=== PATIENT | male | born 1975 | race Two or more races ===

== ENCOUNTER 2019-01-04 01:55 | Emergency (ER) | payer SELFPAY ==
[2019-01-04] MEDS ORDERED: ACETAMINOPHEN 325 MG TABLET PO ONE (02:09)
[2019-01-04] MEDS ORDERED: IBUPROFEN 800 MG TABLET PO ONE (04:04)
--- NOTE | 2019-01-04 04:07 | ER Document Report ---
ED Fever - General Chief Complaint: Fever Stated Complaint: FEVER,HEADACHE,BODY PAIN Time Seen by Provider: 01/04/19 03:59 Notes: Patient is a 43-year-old male that comes emergency department for chief complaint of fever since yesterday. He states he started getting chills, body aches, he states he hurts all over. He has had intermittent headaches as well. He denies shortness of breath, cough, sore throat, abdominal pain. He states he did have a loose stool. He has some generalized lower back pain. He denies any obvious sick contacts, recent travel, denies ever using IV drugs, only past medical history reported is umbilical hernia repair. He takes no daily medications. TRAVEL OUTSIDE OF THE [place] IN LAST 30 DAYS: No Past Medical History - General Information source: Patient - Social History Smoking Status: Never Smoker Drug Abuse: None Lives with: Family Family History: Reviewed & Not Pertinent Patient has suicidal ideation: No Patient has homicidal ideation: No - Medical History Medical History: Negative Renal/ Medical History: Denies: Hx Peritoneal Dialysis - Immunizations Immunizations up to date: Yes Hx Diphtheria, Pertussis, Tetanus Vaccination: Yes Review of Systems - Review of Systems Constitutional: See HPI EENT: No symptoms reported Cardiovascular: No symptoms reported Respiratory: No symptoms reported Gastrointestinal: No symptoms reported Genitourinary: No symptoms reported Male Genitourinary: No symptoms reported Musculoskeletal: See HPI Skin: No symptoms reported Hematologic/Lymphatic: No symptoms reported Neurological/Psychological: See HPI Physical Exam - Vital signs Vitals: Temp Pulse Resp BP Pulse Ox 102.9 F H 125 H 16 143/89 H 94 01/04/19 02:03 01/04/19 02:03 01/04/19 02:03 01/04/19 02:03 01/04/19 02:03 - Notes Notes: GENERAL: Alert, interacts well. No acute distress. HEAD: Normocephalic, atraumatic. EYES: Pupils equal, round, and reactive to light. Extraocular movements intact. ENT: Oral mucosa moist, tongue midline. Oropharynx unremarkable. Airway patent. Nares patent, no nasal septal hematoma NECK: Full range of motion. Supple. Trachea midline. Negative Brudzinski sign, no nuchal rigidity LUNGS: Clear to auscultation bilaterally, no wheezes, rales, or rhonchi. No respiratory distress. HEART: Borderline tachycardic. Rhythm. No murmur ABDOMEN: Soft, non-tender. Non-distended. Bowel sounds present in all 4 quadrants. EXTREMITIES: Moves all 4 extremities spontaneously. No edema, normal radial and dorsalis pedis pulses bilaterally. No cyanosis. BACK: no cervical, thoracic, lumbar midline tenderness. No saddle anesthesia, normal distal neurovascular exam. Moves all extremities in full range of motion. NEUROLOGICAL: Alert and oriented x3. Normal speech. Cranial nerves II through XII grossly intact. PSYCH: Normal affect, normal mood. SKIN: Slightly flushed. Course - Re-evaluation Re-evalutation: Patient with no rash, no nuchal rigidity, no reported neck pain, no sore throat, normal oropharyngeal exam, clear lungs, no cough, no reported symptoms other than fever, generalized body aches, and headache. Headache is mild and patient is not complaining of a headache when I reevaluated him except for a minimal one. CBC shows mild leukocytosis with elevation of neutrophils. Nonspecific given patient's presentation. Chest x-ray does not show pneumonia. Chemistry non specific with very borderline bilirubin. Soft benign abdomen on exam without complaints of abdominal pain. [place] negative. I discussed with patient. I did recommend a lumbar puncture because of his headache, high fever, and really no other symptoms. Patient declined. I could not change his mind even whatsoever. However because patient is still well- appearing I suspect that if this is meningitis this is most likely aseptic meningitis. We do have blood cultures pending. 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 I discussed this with patient. Patient actually does want serum testing for this, this was placed. He will be placed on doxycycline. He was instructed to return if he worsens in any way including severe headache, confusion, abdominal pain, shortness of breath, throat pain, or any other concerning or worsening symptoms. Patient and friend at bedside state understanding and agreement. Vital signs unremarkable and patient is very well-appearing at time of discharge (he is talkative, ambulates easily, is very normal in appearance). - Vital Signs Vital signs: Temp Pulse Resp BP Pulse Ox 99.0 F 125 H 19 117/76 95 01/04/19 07:00 01/04/19 02:03 01/04/19 07:01 01/04/19 07:00 01/04/19 07:01 - Laboratory Result Diagrams: 01/04/19 04:28 01/04/19 04:28 Laboratory results interpreted by me: 01/04/19 01/04/19 01/04/19 04:28 04:28 04:28 WBC 11.3 H RDW 14.6 H Plt Count 141 L Lymph % (Auto) 9.8 L Absolute Neuts (auto) 9.6 H Seg Neutrophils % 85.0 H VBG pH 7.46 H VBG pCO2 31.1 L Sodium 130.8 L BUN 6 L Calcium 10.5 H Total Bilirubin 1.6 H Direct Bilirubin 0.6 H AST 85 H Discharge - Discharge Clinical Impression: Body aches Fever Qualifiers: Fever type: unspecified Qualified Code(s): R50.9 - Fever, unspecified Condition: Stable Disposition: HOME, SELF-CARE Additional Instructions: The exact cause of your fever is uncertain, however I am concerned that you have a tickborne illness called [place] spotted fever. As result we have started you on doxycycline. Take Tylenol or ibuprofen for your fever, rest, symptoms should begin to resolve. We do have pending tests here including blood cultures and tickborne illness testing, you will be contacted for any concerning findings. Return if you worsen including severe headache, severe abdominal pain, difficulty breathing, vomiting, confusion, or something is not right. Prescriptions: Doxycycline Hyclate 100 mg PO BID #20 capsule Forms: Return to Work, Treatment of Relative/Child
[2019-01-04 04:54] LABS: ABSOLUTE LYMPHOCYTES (AUTO) 1.1 10^3/uL (0.5-4.7); ABSOLUTE MONOCYTES (AUTO) 0.6 10^3/uL (0.1-1.4); ABSOLUTE NEUT (AUTO) 9.6 10^3/uL (1.7-8.2); BASOPHILS % (AUTO) 0.1 % (0-2); EOSINOPHILS % (AUTO) 0.1 % (0-6); HEMATOCRIT 44.4 % (37.9-51.0); LYMPHOCYTES % (AUTO) 9.8 % (13-45); MEAN CORPUSCULAR HEMOGLOBIN 31.8 pg (27.0-33.4); MEAN CORPUSCULAR HGB CONC 33.9 g/dL (32.0-36.0); MEAN CORPUSCULAR VOLUME 94 fl (80-97); PLATELET COUNT 141 10^3/uL (150-450); RED BLOOD COUNT 4.72 10^6/uL (4.35-5.55); RED CELL DISTRIBUTION WIDTH 14.6 % (11.5-14.0); TOTAL CELLS COUNTED % (AUTO) 100 %; VENOUS BLOOD BASE EXCESS -1.1 mmol/L; VENOUS BLOOD HCO3 21.6 mmol/L (20-32); VENOUS BLOOD PCO2 31.1 mmHg (35-63); VENOUS BLOOD PH 7.46 (7.30-7.42); WHITE BLOOD COUNT 11.3 10^3/uL (4.0-10.5)
[2019-01-04 05:08] LABS: ALBUMIN 3.8 g/dL (3.5-5.0); ALKALINE PHOSPHATASE 119 U/L (38-126); ANION GAP 9 (5-19); ASPARTATE AMINO TRANSFERASE 85 U/L (17-59); BILIRUBIN,DIRECT 0.6 mg/dL (0.0-0.4); BILIRUBIN,TOTAL 1.6 mg/dL (0.2-1.3); BLOOD UREA NITROGEN 6 mg/dL (7-20); CALCIUM 10.5 mg/dL (8.4-10.2); CARBON DIOXIDE 23 mmol/L (22-30); CHLORIDE 99 mmol/L (98-107); GLUCOSE 107 mg/dL (75-110); POTASSIUM 3.7 mmol/L (3.6-5.0); TOTAL PROTEIN 7.6 g/dL (6.3-8.2)
[2019-01-04] MEDS ORDERED: NORMAL SALINE 1000 ML 1,000 ML IV ONE (05:22)
--- NOTE | 2019-01-04 05:51 | RADIOLOGY REPORT (SQ) ---
EXAM DESCRIPTION: XR CHEST 2 VIEWS COMPLETED DATE/TME: 01/04/2019 04:05 CLINICAL HISTORY: fevers COMPARISON: None. FINDINGS: Frontal and lateral views of the chest. The cardiomediastinal silhouette has normal size and contour. No consolidation, pneumothorax, or pleural effusion. No displaced rib fractures identified. Leads overlie the chest. Upper abdominal soft tissues are unremarkable. IMPRESSION: 1. No acute pulmonary process identified.
[2019-01-04] MEDS ORDERED: DOXYCYCLINE HYCLATE 100 MG TABLET PO ONE (07:02)
[2019-01-04 07:16] VITALS: BP 117/76
[2019-01-07 16:44] LABS: LYME DISEASE IGM AB <0.80 index (0.00-0.79)
[2019-01-08 07:18] LABS: ROCKY MTN SPOTTED FEVER IGM AB 0.45 index (0.00-0.89)
[2019-01-08 17:36] LABS: ROCKY MTN SPOTTED FEV IGG EIA Equivocal (Negative)
[2019-01-08 19:11] LABS: ROCKY MTN SPOTTED FEV IGG IFA <1:64 (Neg <1:64)
== END 2019-01-04 07:16 | disposition home or self-care (01) ==
LOC: ER 01:55
DX: M79.10 Myalgia, unspecified site (principal); R50.9 Fever, unspecified; R51 Headache; R19.7 Diarrhea, unspecified
CPT/HCPCS: 99283; 96360; 36415; 87040; 85025; 86308; 80053; 86757 ×2; 82803; 83605; 86618 ×2; 86617 ×2; 71046; J7030

== ENCOUNTER 2019-01-06 03:52 | Emergency (ER) | payer SELFPAY ==
[2019-01-06 03:59] VITALS: BP 168/93
== END 2019-01-06 07:20 | disposition left against medical advice (07) ==
LOC: ER 03:52
DX: Z53.21 Procedure and treatment not carried out due to patient leaving prior to being seen by health care provider (principal)